=== PATIENT | male | born 1985 | race Caucasian/White ===

== ENCOUNTER 2024-03-14 08:05 | Outpatient (CLI) | payer BC ==
[2024-03-14] MEDS ORDERED: iohexol 350MG/ML 100ml bottle IV ONE (08:40)
[2024-03-14] MEDS ORDERED: iohexol 350 MG/ML 50ML vial IV ONE (08:41)
[2024-03-14 08:53] LABS: ALBUMIN 4.2 G/DL (3.4-5.0); ANION GAP 12 (8-16); BLOOD UREA NITROGEN 14 MG/DL (7-18); BUN/CREATININE RATIO 15.4 (10.0-20.0); CALCIUM 9.4 MG/DL (8.5-10.1); CHLORIDE 102 MMOL/L (99-107); CREATININE 0.91 MG/DL (0.60-1.10); GLUCOSE 91 MG/DL (70-104); POTASSIUM 4.2 MMOL/L (3.5-5.1); SODIUM 142 MMOL/L (135-145); TOTAL CARBON DIOXIDE 28.5 MMOL/L (24-32); eGFR > 90 ML/MIN
== END 2024-03-14 23:59 | disposition home or self-care (01) ==
LOC: RAD 08:05
PROVIDERS: ATTEND Internal Medicine Interventional Cardiology
DX: R00.2 Palpitations (principal)
CPT/HCPCS: 36415; 80048; Q9967

== ENCOUNTER 2024-03-15 10:39 | Outpatient (CLI) | payer BC ==
[2024-03-15] MEDS ORDERED: iohexol 350MG/ML 100ml bottle IV ONE (11:02)
== END 2024-03-15 23:59 | disposition home or self-care (01) ==
LOC: RAD 10:39
PROVIDERS: ATTEND Internal Medicine Interventional Cardiology
DX: I71.20 Thoracic aortic aneurysm, without rupture, unspecified (principal)
CPT/HCPCS: 71275; Q9967